=== PATIENT | male | born 1970 | race Caucasian/White ===

== ENCOUNTER → 2023-08-19 08:55 | Outpatient (REF) | payer BC, SELFPAY | LOC: RCS 08:55 | PROVIDERS: ATTENDING PHYSICIAN Internal Medicine Cardiovascular Disease; FAMILY PHYSICIAN Family Medicine | DX: I42.0 Dilated cardiomyopathy (principal) | CPT/HCPCS: 93306 ==

== ENCOUNTER → 2024-02-16 07:58 | Outpatient (REF) | payer BC, SELFPAY | LOC: RCS 07:58 | PROVIDERS: ATTENDING PHYSICIAN Internal Medicine Cardiovascular Disease; FAMILY PHYSICIAN Family Medicine | DX: I50.32 Chronic diastolic (congestive) heart failure (principal); I42.0 Dilated cardiomyopathy | CPT/HCPCS: 93306 ==

== ENCOUNTER → 2024-10-28 09:06 | Outpatient (REF) | payer BC, SELFPAY ==
--- NOTE | 2024-10-28 10:38 | CARDSERVDEF ---
Echocardiogram with Definity completed after protocol screening completed. Allergies verified.
Patent IV site: __Left hand 22 G PC inserted by _Deepika Guzman RN__
IV site flushed with 0.9% NaCl pre and post administration.
Diluted bolus method utilized to enhance visualization of ventricular dumont.
Total volume given: _3___ mL
Patient tolerated all procedures well without complications.
Heplock D/c ed at 1035, site clear, no redness, no edema. Pressure held, no bleeding, 2x2 applied and taped. Pt offers no complaints.
== END ==
LOC: RCS 09:06
PROVIDERS: ATTENDING PHYSICIAN Internal Medicine Cardiovascular Disease; FAMILY PHYSICIAN Family Medicine
DX: I50.32 Chronic diastolic (congestive) heart failure (principal)
CPT/HCPCS: 93306; Q9957

== ENCOUNTER 2025-05-12 06:02 | Day surgery (SDC) | payer BC, SELFPAY ==
[2025-05-05 09:12] VITALS: BMI 35.2
[2025-05-05 09:30] LABS: Hematocrit 48.9 % (39.0-52.0); Hemoglobin 16.4 g/dL (13.0-18.0); Mean Corp Hgb Conc. 33.5 g/dL (33.0-37.0); Mean Corpuscular Volume 81.0 fL (80.0-94.0); Nucleated Red Blood Cells % 0 % (-); Platelet Count 191 10^3/uL (130-400); Red Cell Dist. Width 13.9 % (11.5-14.5)
[2025-05-05 09:48] LABS: ALT (SGPT) 16 U/L (0-50); AST (SGOT) 17 U/L (17-59); Albumin 4.4 g/dl (3.5-5.0); Alkaline Phosphatase 76 U/L (38-126); Blood Urea Nitrogen 17 mg/dl (9-20); Calcium 9.7 mg/dl (8.4-10.2); Carbon Dioxide 28 mmol/L (22-30); Chloride 105 mmol/L (98-107); Estimated Creatinine Clearance 114 ml/min; Glucose 177 mg/dl (70-99); Potassium 4.6 mmol/L (3.5-5.1); Sodium 138 mmol/L (135-145); Total Protein 7.1 g/dl (6.3-8.2); eGFR > 60.00
--- NOTE | 2025-05-05 10:54 | HPS.HSE ---
Family Physician
-
Family Physician: Mitch Rebollar
Chief Complaint
-
PVCs. Palpitations. Congestive heart failure, mildly reduced ejection fraction.
History of Present Illness
The patient is a 54 year old male presenting today with PVCs with associated palpitations. He is on current pharmacological therapy with Carvedilol. Previous medical therapy with Metoprolol was stopped due to reported fatigue. He was noted
to have a high burden of PVCs (22%) on his most recent 14 day Holter monitor in the Fall of 2024. Nonsustained ventricular tachycardia was also noted at 33 different times, the longest episode of which was 16 beats at a heart rate of 165 beats per
minute. His echocardiogram in September 2024 revealed a mildly reduced ejection fraction of 40-45%. This was noted to decrease compared to the prior ejection fraction of 50-55% on his February 2024 echo. He has been compliant with guideline directed
medical therapy for his heart failure and cardiomyopathy, which includes his beta arelis, Entresto, Farxiga, Spironolactone, and Lipitor. A left cardiac catheterization in 2020 ruled out coronary artery disease as the cause of his left ventricular
systolic dysfunction. Given the frequency of his PVCs and worsening ejection fraction, it is recommended he proceed with a PVC ablation through CARTO mapping at this time for further arrhythmia management. He denies any current complaints today such
as chest pain, shortness of breath at rest, nausea, vomiting, diarrhea, lightheadedness, dizziness, sore throat, or fever. He has a chronic cough at baseline due to post-nasal drip.
Medical History
Past Medical History
Past Medical History: Reports Other
Additional Past Medical History:
1. Symptomatic PVCs with palpitations, on Carvedilol.
2. Congestive heart failure, mildly reduced ejection fraction.
3. Nonsustained ventricular tachycardia.
4. PACs.
5. Dilated cardiomyopathy.
6. Mild mitral regurgitation.
7. Chronic dyspnea on exertion.
8. Chronic post-nasal drip.
9. Non-insulin dependent diabetes.
10. GERD.
11. Irritable bowel syndrome with diarrhea.
12. Rare migraines.
13. Benign essential tremor.
14. Rheumatoid arthritis, on monthly Orencia.
15. Osteoarthritis.
16. Hypothyroidism.
17. Erectile dysfunction.
18. Obesity, BMI 35.2.
19. Infrequent tobacco abuse.
Past Surgical History: Reports Cardiac (Left cardiac catheterization )
Social History
Tobacco: Other (He occasionally smokes a cigar. He denies any cigarette or chewing tobacco history. )
Alcohol: Other (Rare use reported. )
Personal:
Living: Other (He lives with his in a 3 story home. )
Employment: Employed
Family History
Family History: Not pertinent
Allergies / Home Medications
Allergy/Medication List:
Home medications:
1. Orencia 1000 mg subcutaneous monthly.
2. Afrin Sinus 1 dose intranasal twice a day as needed.
3. Atorvastatin 20 mg p.o. daily.
4. Carvedilol 6.25 mg p.o. twice a day.
5. Celebrex 200 mg p.o. daily.
6. Centrum Silver 1 tablet p.o. daily.
7. Cholecalciferol 100 mcg p.o. daily.
8. Co Q10 100 mg p.o. daily.
9. Cyanocobalamin 2000 mcg p.o. daily.
10. Farxiga 10 mg p.o. daily.
11. Cinda-D 1 tablet p.o. every 12 hours as needed.
12. Flonase 1 spray intranasal twice a day as needed.
13. Furosemide 20 mg p.o. daily.
14. Levothyroxine 50 mcg p.o. daily.
15. Metformin 1000 mg p.o. daily.
16. Frisco 3 2000 mg p.o. at bedtime.
17. Omeprazole 20 mg p.o. at bedtime.
18. PreserVision 1 tablet p.o. twice a day.
19. Entresto 97-103 mg p.o. twice a day.
20. Viagra 100 mg p.o. daily as needed.
21. Spironolactone 25 mg p.o. daily.
22. Vitamin B6 100 mg p.o. at bedtime.
Allergies: Environmental. No known drug allergies.
Review of Systems
-
A 12 point ROS was completed and negative except as noted: Yes
Physical Exam
Vital Signs
Blood pressure 119/69. Heart rate 79. Respirations 18. Pulse ox 97% on room air.
Height 6 feet, 1.5 inches. Weight 122.6 kg. BMI 35.2.
Physical Exam
General: Well Developed, Well Nourished and No Apparent Distress
HEENT: NormoCephalic, Moist mucous membranes, Atraumatic and PERRLA
Respiratory: Clear
Cardiac: Regular Rhythm (with occasional ectopy. )
GI: Soft, Non Tender, Non Distended and Other (Obese. )
Musculoskeletal: No Edema and Normal Gait & Station
Skin: Warm and Dry
Neuro: AO x 3 and Nonfocal/grossly intact
Laboratory Results
-
05/05/25 09:04
05/05/25 09:04
Laboratory Results
Total Bilirubin 0.7 mg/dl (0.2-1.3) 05/05/25 09:04
AST 17 U/L (17-59) 05/05/25 09:04
ALT 16 U/L (0-50) 05/05/25 09:04
Alkaline Phosphatase 76 U/L (38-126) 05/05/25 09:04
EKG 05/05/2025: Sinus rhythm with occasional PVCs and PACs. Septal and inferior infarct, age undetermined. Nonspecific T wave abnormality.
Echocardiogram 10/28/2024: Left ventricle is mildly dilated. Mildly reduced left ventricular systolic function. LV ejection fraction is 40-45% by visual assessment. Basal and mid septal hypokinesis. Diastolic function indeterminate. Moderate left
atrial enlargement. Mild mitral regurgitation. Estimated PASP 35-40 mmHg and RA 8 mmHg. Compared with echocardiogram report 02/16/2024, the LVEF has decreased from 50-55%. Left ventricular enlargement is newly reported.
Impression/Plan
-
IMPRESSION/PLAN:
1. PVCs, palpitations, and congestive heart failure, mildly reduced ejection fraction: The patient is in need of a PVC ablation through CARTO mapping with Dr. Vargas Corbett on 05/12/2025. The benefits and risks of the procedure have been explained
to the patient. The patient understands these risks and wishes to proceed. He will hold both his Farxiga and Carvedilol 3 days prior. He will hold Viagra 24 hours prior. He will take no medications the morning of his procedure.
[2025-05-12] VITALS (9 sets, daily range): BP systolic 110–124; BP diastolic 63–85; BMI 34.2
[2025-05-12 06:40] LABS: Glucose - Point of Care 151 mg/dl (70-99)
[2025-05-12 08:32] LABS: ACT-LR - POC 224 Seconds (116-155)
[2025-05-12 08:40] LABS: Glucose - Point of Care 164 mg/dl (70-99)
[2025-05-12 09:53] LABS: ACT-LR - POC 240 Seconds (116-155)
--- NOTE | 2025-05-12 11:09 | ITS.CL.ABL ---
Printing Plate Maker - Ablation
Ablation
Procedure Report:
PVC / VT ablation:
Mr. Redman is a very pleasant 54 yr old gentleman with highly symptomatic with high burden of PVC (>30%) with PVC induced cardiomyopathy presented today to the EP lab for PVC/VT ablation
Date of the Procedure:
05/12/2025
Indications:
High burden of PVCs
Pre-Operative Diagnosis:
Premature ventricular contractions
Post-Operative Diagnosis:
Premature ventricular contractions
Procedure Performed:
PVC / Ventricular tachycardia �LVOT ablation
PVC RVOT ablation
Performing Physician:
Vargas Corbett MD
Anesthesia:
See anesthesia records.
Detailed Description of the Procedure:
Written informed consent was obtained from the patient after a full explanation of the risks and benefits of the procedure including the risks of sedation and anesthesia. The patient was brought to the electrophysiology laboratory in stable
condition in fasting state. Continuous electrocardiographic and hemodynamic monitoring was initiated.
The initial rhythm was normal sinus rhythm with PVCs.
The procedure site was meticulously prepared with surgical scrub and allowed to dry with no pooling. Sterile draping was applied to cover the procedure site. The image intensifier was draped with sterile bag and positioned over the patient. After
infusion of local anesthetic, vascular access was obtained under ultrasound guidance and sheaths were placed over guide wire as detailed below.
Sheath and Catheter Placement:
The following catheters / sheaths were placed
Sheaths:
8Fr long sheath in right femoral artery
Agilis sheath in right femoral vein.
Catheters:
[employer] [place] Thermocool STSF bidirectional
- at locations of HRA, RV, RVOT, Aorta, LVOT, LV
Anticoagulation:
An initial 7000 units of heparin was given after the IV access before placing catheters to the heart and heparin drip was started. An additional 5000 units were given before placing catheters in the arterial system.
The ACT was checked every 30 minutes to keep ACT above 300 throughout the case.
3D Electroanatomic Mapping:
Using the ThermoInfrascale STSF catheter was advanced through Agilis sheath into the right atrium. An electroanatomic map (EAM) of the right atrium was created using [employer] Carto mapping system. The catheter was then advanced into the RV and the
EAM of the RV and RVOT was created. The clinical VT was mapped in detail and the best location of the origin was obtained at the septal side of RVOT.
PVC #1: RV and RVOT mapping:
First, the ablation catheter was placed in the venous system. The RV was mapped and the RVOT area identified. The clinical prominent PVC was noted coming from the RVOT at the posterior section. The Pace map showed excellent PVC approximation. The
signals were 18 ms pre-surface EGM.
RVOT ablation #1:
Radiofrequency ablation was performed using an open irrigation, force-sensing 3.5 mm ablation catheter ([employer] STSF D/F) at the point of interest. Further lesions were placed around the same area and consolidated the ablation lesion. The PVC
were suppressed completely.
The PVC came back and were mapped again and was noted more septal location. Further ablation suppressed but the PVCs keep comg back with earliest location moved to the aortic wall.
Decision was made to proceed to the LVOT mapping.
PVC: Aorta Cusps and the LV cavity with retrograde approach:
The ablation catheter was advanced via the arterial puncture and the aorta, cusps were mapped. The orifice of the left main was identified and care was taken to avoid entry into the left main. The
Then the ablation was looped in the aorta and advanced into the LV cavity. The LV was mapped. The LVOT had the better signals. The non coronary cusp was the esrist with the excellent suppression was noted between the right and non coronary cusp
location.
The varied location of the PVC signal prompted to map the LV outflow tract as well.
LV mapping:
The best EGMs from the LVOT were earlier than RVOT in terms of the surface PVC EGMs. There were frequent PVCs noted. The best area of the earliest activation was at the LVOT septal area next to AMC. The AMC and the Aortic cusps were mapped in detail
as well.
Ablation:
PVC # 2 Ablation in the LVOT ablation:
Ablation catheter ([employer] STSF contact force ablation catheter) was introduced via the arterial sheath. The ACT remained above 300. The ablation catheter was placed in the LV. The LVOT area was ablated with 35watts with good force with excellent
drop in impedance.
The PVCs were suppressed.
Further ablation lesions were created on the area for additional consolidated lesions formation.
Patient was observed for 25 minutes and no PVCs were noted and the decision was made to stop ablation and assess if further ablations are needed.
Procedure End:
Patient was recovered.
Following the completion of the EP study, catheters were removed. Protamine 30 mg was given at the end of the procedure and ACT was checked repeatedly.
The femoral artery was closed using manual compression. The femoral venous sheath was removed and hemostasis achieved with manual compression after acceptable ACT is achieved.
Estimated Blood loss:
10 cc
Specimens Removed:
None.
Implants / Devices:
None
Urine output:
None
Packs / Drains/ Tubes:
None
Instrument / Sponge Count Correct:
Yes
Complications of the Procedure:
None
Condition of Patient at Time of Transfer:
Hemodynamically stable state with no neurological or vascular compromise.
Summary:
PVC ablation x 2 of RVOT and LVOT origin.
[2025-05-12 11:26] LABS: Glucose - Point of Care 180 mg/dl (70-99)
[2025-05-12] MEDS: TYLENOL 1000 MG PO (12:36)
== END 2025-05-12 15:30 | disposition home or self-care (01) ==
LOC: CATH 06:02
PROVIDERS: ATTENDING PHYSICIAN Internal Medicine Cardiovascular Disease; FAMILY PHYSICIAN Family Medicine; OTHER PHYSICIAN Internal Medicine Cardiovascular Disease; OTHER PHYSICIAN Internal Medicine Rheumatology
DX: I49.3 Ventricular premature depolarization (principal); I11.0 Hypertensive heart disease with heart failure; I50.22 Chronic systolic (congestive) heart failure; R00.2 Palpitations; I47.20 Ventricular tachycardia, unspecified; I42.0 Dilated cardiomyopathy; R09.82 Postnasal drip; R06.09 Other forms of dyspnea; I34.0 Nonrheumatic mitral (valve) insufficiency; E11.9 Type 2 diabetes mellitus without complications; Z79.84 Long term (current) use of oral hypoglycemic drugs; K21.9 Gastro-esophageal reflux disease without esophagitis; K58.0 Irritable bowel syndrome with diarrhea; G25.0 Essential tremor; G43.909 Migraine, unspecified, not intractable, without status migrainosus; M06.9 Rheumatoid arthritis, unspecified; E03.9 Hypothyroidism, unspecified; E66.9 Obesity, unspecified; Z68.35 Body mass index [BMI] 35.0-35.9, adult; N52.9 Male erectile dysfunction, unspecified; Z79.899 Other long term (current) drug therapy; Z79.890 Hormone replacement therapy; Z79.1 Long term (current) use of non-steroidal anti-inflammatories (NSAID); F17.290 Nicotine dependence, other tobacco product, uncomplicated; Z79.69 Long term (current) use of other immunomodulators and immunosuppressants
CPT/HCPCS: C1732; C1894; C1766; 36415; 80053; 82962; 85025; 85347; 86850; 86900; 86901; 93005; 93654